=== PATIENT | male | born 1970 ===

== ENCOUNTER 2019-04-04 07:20 | Day surgery (SDC) | payer OTHER ==
[~2019-04-04 07:20] MED LIST: ADVAIR HFA 115/12 GM IH
== END 2019-04-04 16:45 | disposition home or self-care (01) ==
LOC: CIR.AMB 07:20
DX: M75.122 Complete rotator cuff tear or rupture of left shoulder, not specified as traumatic (principal); M75.22 Bicipital tendinitis, left shoulder; M19.012 Primary osteoarthritis, left shoulder

== ENCOUNTER → 2020-07-30 | Outpatient (CLI) | payer OTHER | END | disposition home or self-care (01) | LOC: TOM 14:05 | PROVIDERS: ATTEND Internal Medicine | DX: G43.009 Migraine without aura, not intractable, without status migrainosus (principal) ==